=== PATIENT | male | born 1960 | race Caucasian/White ===

== ENCOUNTER → 2022-10-29 | Outpatient (CLI) | payer MEDICARE, BC | LOC: M LAB 15:04 | PROVIDERS: ATTEND Physician Assistant Medical | DX: T07.XXXD Unspecified multiple injuries, subsequent encounter (principal) ==

== ENCOUNTER → 2023-07-26 | Outpatient (CLI) | payer MEDICARE, BC | LOC: M SOG 08:03 | PROVIDERS: ATTEND Orthopaedic Surgery | DX: M17.11 Unilateral primary osteoarthritis, right knee (principal); M25.562 Pain in left knee ==

== ENCOUNTER → 2024-01-29 | Outpatient (CLI) | payer MEDICARE, BC | LOC: M SOG 07:23 | PROVIDERS: ATTEND Orthopaedic Surgery | DX: M17.11 Unilateral primary osteoarthritis, right knee (principal) ==

== ENCOUNTER 2024-05-13 14:44 | Inpatient (IN) | payer OTHER, MEDICARE, BC ==
[~2024-05-13] VITALS: Ht 188 cm; Wt 90.4 kg
[2024-05-13] MEDS: NS (Normal Saline) 0.9% 1,000 ML IV ONE ×2 (14:50→20:15)
[2024-05-13 14:53] VITALS: TEMP 98
[2024-05-13] MEDS ORDERED: CALCIUM CHLORIDE 10% 1 GM in D5W 100 ML IV ONE (15:05)
[2024-05-13 15:26] LABS: BASO # 0.1 10^3/uL (0.0-0.2); BASO % 0.5 % (0.0-1.0); EOS # 0.1 10^3/uL (0.0-0.5); EOS % 1.2 % (0.0-3.0); HEMATOCRIT 54.5 % (42.0-52.0); HEMOGLOBIN 18.5 g/dl (13.5-17.5); LYMPH % 17.9 % (24.0-44.0); MEAN CORPUSCULAR HGB CONC 33.9 g/dl (32.0-36.5); MEAN CORPUSCULAR VOLUME 91.3 fl (80.0-96.0); MONO # 0.8 10^3/uL (0.0-0.8); MONO % 6.9 % (2.0-8.0); NEUTROPHILS # 8.1 10^3/uL (1.5-8.5); PLATELET COUNT, AUTOMATED 310 10^3/uL (150-450); RED BLOOD COUNT 5.97 10^6/uL (4.30-6.10)
[2024-05-13 15:34] LABS: THYROID STIMULATING HORMONE 0.823 uIU/ML (0.55-4.78)
[2024-05-13 15:37] LABS: ETHYL ALCOHOL (ETHANOL) 0.006 % (0.000-0.010)
[2024-05-13 15:39] LABS: SALICYLATE LEVEL < 3.0 MG/DL (<30)
[2024-05-13 15:40] LABS: ALBUMIN 4.2 G/DL (3.2-5.2); ALKALINE PHOSPHATASE 101 U/L (40-129); ALT/SGPT 19 U/L (7.0-40); AST/SGOT 13 U/L (<34); BILIRUBIN,DIRECT 0.2 MG/DL (<0.4); BILIRUBIN,TOTAL 0.7 MG/DL (0.3-1.2); BLOOD UREA NITROGEN 13 MG/DL (9-23); CALCIUM LEVEL 10.4 MG/DL (8.3-10.6); CARBON DIOXIDE LEVEL 19 MMOL/L (20-31); CHLORIDE LEVEL 108 MMOL/L (98-107); CREATININE FOR GFR 0.87 MG/DL (0.70-1.30); GLOMERULAR FILTRATION RATE > 60.0 (>49); GLUCOSE, FASTING 124 MG/DL (74-106); MAGNESIUM LEVEL 2.2 MG/DL (1.8-2.4); POTASSIUM SERUM 4.2 MMOL/L (3.5-5.1); SODIUM LEVEL 140 MMOL/L (136-145); TOTAL PROTEIN 7.8 G/DL (5.7-8.2)
[2024-05-13 15:41] LABS: CPK CREATINE PHOSPHOKINASE 69 U/L (46-171)
[2024-05-13] MEDS: CHARCOAL ACTIVATED LIQUID 25GM/120ML BTL PO ONE (16:14)
[2024-05-13] MEDS: LORazepam 2 MG/ML 1ML VIAL IV STA (16:14)
[2024-05-13 16:44] LABS: AMPHETAMINES LEVEL URINE NEGATIVE (NEGATIVE); BARBITURATES URINE NEGATIVE (NEGATIVE); COCAINE METABOLITE URINE NEGATIVE (NEGATIVE); METHADONE URINE NEGATIVE (NEGATIVE); OPIATES URINE NEGATIVE (NEGATIVE); PHENCYCLIDINE URINE NEGATIVE (NEGATIVE)
[2024-05-13 16:45] LABS: BENZODIAZEPINES URINE NEGATIVE (NEGATIVE)
[2024-05-13] MEDS ORDERED: AMLO1TAB25 PO (16:48)
[2024-05-13] MEDS ORDERED: ACET-897 PO (16:48)
[2024-05-13 16:51] LABS: CANNABINOIDS URINE POSITIVE (NEGATIVE)
[2024-05-13] MEDS ORDERED: ATOR1TAB21 PO (16:56)
[2024-05-13] MEDS ORDERED: PARO40TA3 PO (16:56)
[2024-05-13] MEDS ORDERED: HOME MED LIST COMPLETE! XX SCH (17:00)
[2024-05-13] MEDS ORDERED: ACETAMINOPHEN 325 MG TAB PO PRN (17:05)
[2024-05-13] MEDS: NS (Normal Saline) 0.9% 1,000 ML IV SCH (19:59)
[2024-05-14 06:45] LABS: MEAN CORPUSCULAR HEMOGLOBIN 31.5 pg (27.0-33.0); MEAN CORPUSCULAR HGB CONC 34.4 g/dl (32.0-36.5); MEAN CORPUSCULAR VOLUME 91.5 fl (80.0-96.0); PLATELET COUNT, AUTOMATED 263 10^3/uL (150-450); RED BLOOD COUNT 4.95 10^6/uL (4.30-6.10); WHITE BLOOD COUNT 7.6 10^3/uL (4.0-10.0)
[2024-05-14 06:50] LABS: HEMATOCRIT 45.4 % (42.0-52.0); HEMOGLOBIN 15.6 g/dl (13.5-17.5)
[2024-05-14 07:01] LABS: BLOOD UREA NITROGEN 13 MG/DL (9-23); CALCIUM LEVEL 9.2 MG/DL (8.3-10.6); CARBON DIOXIDE LEVEL 25 MMOL/L (20-31); CHLORIDE LEVEL 112 MMOL/L (98-107); CREATININE FOR GFR 0.84 MG/DL (0.70-1.30); GLOMERULAR FILTRATION RATE > 60.0 (>49); GLUCOSE, FASTING 113 MG/DL (74-106); POTASSIUM SERUM 3.9 MMOL/L (3.5-5.1); SODIUM LEVEL 144 MMOL/L (136-145)
[2024-05-14 09:15] VITALS: BP 126/81; O2SAT 96
[2024-05-14] MEDS: ENOXAPARIN 40MG/0.4ML SYRINGE (J1650 PER 10MG) SC SCH (09:37)
[2024-05-14] MEDS ORDERED: OMEP-173 PO (13:39)
[2024-05-14] MEDS ORDERED: traZODone 50 MG TAB PO PRN (16:20)
[2024-05-14] MEDS ORDERED: IBUPROFEN 600MG TAB PO ONE (16:20)
== END 2024-05-14 10:25 | disposition left against medical advice (07) | DRG 918 ==
LOC: M ED 14:44 → M ED INP 17:02
PROVIDERS: ADMIT Internal Medicine Nephrology; ATTEND Internal Medicine
DX: T46.1X2A Poisoning by calcium-channel blockers, intentional self-harm, initial encounter (principal); I10 Essential (primary) hypertension; E78.5 Hyperlipidemia, unspecified; M79.7 Fibromyalgia; F41.9 Anxiety disorder, unspecified; F32.A Depression, unspecified; F43.10 Post-traumatic stress disorder, unspecified; F17.200 Nicotine dependence, unspecified, uncomplicated; Z79.899 Other long term (current) drug therapy

== ENCOUNTER 2024-05-14 10:48 | Inpatient (IN) | payer MEDICARE, BC ==
[~2024-05-14] VITALS: Ht 188 cm; Wt 90.2 kg
[~2024-05-14 10:48] MED LIST: ACET-897 PO; AMLO1TAB25 PO; ATOR1TAB21 PO; NICOTINE 21MG/24HR 1 EA TRANSDERMAL TD SCH; PARO40TA3 PO
[2024-05-14] MEDS: ATORVASTATIN 20 MG TAB PO SCH (13:18)
[2024-05-14] MEDS: PARoxetine 20MG TABLET PO SCH (13:18)
[2024-05-14] MEDS ORDERED: NICOTINE POLACRILEX 2 MG GUM PO PRN (13:35)
[2024-05-14] MEDS ORDERED: OMEP-173 PO (13:39)
[2024-05-14] MEDS ORDERED: HOME MED LIST COMPLETE! XX SCH (13:40)
[2024-05-14 15:13] VITALS: BP 159/85; TEMP 98.1; O2SAT 99
[2024-05-14] MEDS ORDERED: MAALOX 30 ML SUSP *UDC PO PRN (16:20)
[2024-05-14] MEDS ORDERED: MOM 30ML SUSPENSION UDC PO PRN (16:20)
[2024-05-14] MEDS: OMEPRAZOLE 20MG CAP PO SCH (16:53)
[2024-05-14] MEDS: IBUPROFEN 400MG TAB PO PRN (16:54)
[2024-05-15 06:27] VITALS: BP 144/83; TEMP 97.6; O2SAT 100
[2024-05-15] MEDS: PARoxetine 20MG TABLET PO SCH (08:51)
[2024-05-15] MEDS: ACETAMINOPHEN 500 MG TAB PO PRN (08:52)
[2024-05-15 08:54] VITALS: BP 125/72
[2024-05-15] MEDS: NICOTINE POLACRILEX 2 MG GUM PO PRN (12:33)
[2024-05-15 14:53] VITALS: BP 149/98; TEMP 97.6; O2SAT 98
[2024-05-15] MEDS: ATORVASTATIN 10 MG TAB PO SCH (20:19)
[2024-05-15] MEDS: traZODone 50 MG TAB PO PRN (20:19)
[2024-05-16 06:20] VITALS: BP 160/98; TEMP 97.6; O2SAT 95
[2024-05-16] MEDS ORDERED: EXCEDRIN MIGRAINE TABLET PO PRN ×2 (14:55→15:10)
[2024-05-16 14:58] VITALS: BP 147/90; TEMP 98.6; O2SAT 96
[2024-05-16] MEDS ORDERED: ONDANSETRON 4MG ORAL DISINTEGRATING TAB PO PRN (15:20)
[2024-05-17 06:27] VITALS: BP 156/86; TEMP 98.2; O2SAT 99
[2024-05-17 08:05] VITALS: BP 149/95
[2024-05-17] MEDS ORDERED: AMLO1TAB25 PO (08:44)
[2024-05-17] MEDS ORDERED: PARO20TA3 PO (08:44)
== END 2024-05-17 11:34 | disposition home or self-care (01) | DRG 882 ==
LOC: M ED 10:48 → EDBEDREQSVC 12:38 → M ED INP 14:26 → M PSY 15:09
PROVIDERS: ADMIT Psychiatry & Neurology Psychiatry; ATTEND Psychiatry & Neurology Psychiatry
DX: F43.10 Post-traumatic stress disorder, unspecified (principal); I10 Essential (primary) hypertension; E78.5 Hyperlipidemia, unspecified; M79.7 Fibromyalgia; Z91.51 Personal history of suicidal behavior; F41.9 Anxiety disorder, unspecified; F32.A Depression, unspecified; F17.200 Nicotine dependence, unspecified, uncomplicated; K21.9 Gastro-esophageal reflux disease without esophagitis; Z79.899 Other long term (current) drug therapy; Z88.8 Allergy status to other drugs, medicaments and biological substances; T46.1X5A Adverse effect of calcium-channel blockers, initial encounter

== ENCOUNTER → 2025-03-05 | Outpatient (CLI) | payer MEDICARE, BC ==
[~2025-03-05] MED LIST changes: -NICOTINE 21MG/24HR 1 EA TRANSDERMAL TD SCH; +OMEP-173 PO; +PARO20TA3 PO
== END ==
LOC: M SOG 07:22
PROVIDERS: ATTEND Orthopaedic Surgery
DX: Z53.9 Procedure and treatment not carried out, unspecified reason (principal)